=== PATIENT | male | born 1970 | race Two or more races ===

== ENCOUNTER 2023-10-15 05:06 | Day surgery (SDC) | payer OTHER ==
[2023-10-15] MEDS ORDERED: BUPIVACAINE 0.5 % PF 150 MG/30 ML VIAL ONE (05:53)
[2023-10-15] MEDS ORDERED: FENTANYL PF 250MCG/5ML AMPUL ONE (06:23)
[2023-10-15] MEDS ORDERED: ROCURONIUM BROMIDE 50 MG/5 ML ONE (06:25)
[2023-10-15] MEDS ORDERED: SEVOFLURANE 250 ML BOTTLE IH ONE (06:44)
== END 2023-10-15 09:58 | disposition home or self-care (01) ==
LOC: DS 05:06
PROVIDERS: ATTEND Specialist
DX: S83.241A Other tear of medial meniscus, current injury, right knee, initial encounter (principal); S83.281A Other tear of lateral meniscus, current injury, right knee, initial encounter; X58.XXXA Exposure to other specified factors, initial encounter; Y93.89 Activity, other specified; Y92.89 Other specified places as the place of occurrence of the external cause; Y99.8 Other external cause status; Z79.899 Other long term (current) drug therapy
CPT/HCPCS: 29881; A4217; J0690; J1885; J2704; J3010; J3490